=== PATIENT | male | born 1960 | race Caucasian/White ===

== ENCOUNTER 2017-03-08 08:56 | Day surgery (SDC) | payer OTHER ==
[2017-03-08 09:30] VITALS: BMI 25.8
[2017-03-08] MEDS ORDERED: LIDOCAINE HCL 2% (20ML MULTI-DOSE VIAL) NR ONE (09:54)
[2017-03-08 12:07] VITALS: BP 111/74; PULSE 60; TEMP 98
--- NOTE | 2017-03-09 13:47 | PATH ---
Surgical Pathology Report Patient Name: RAJESH JACKSON [facility]. Rec. #: [id number] /Age/Gender: 1960 (Age: 56) / M Account: [id number] Location: [facility]-ENDOS[facility] Taken: 03/08/2017 Received: 03/08/2017 Reported: 03/09/2017 Physicians: India Berger M.D. Specimen(s) Received A: BX DUODENUM B: BX ANTRUM C: BX GE JUNCTION Clinical History GERD, surveillance colon polyp GERD, diverticulosis colon Final Diagnosis A. DUODENUM, SECOND PORTION AND BULB, BIOPSY: DUODENAL MUCOSA WITHOUT SIGNIFICANT PATHOLOGIC CHANGES. NO HISTOLOGIC EVIDENCE OF GLUTEN SENSITIVE ENTEROPATHY (CELIAC DISEASE). B. STOMACH, ANTRUM, BIOPSY: GASTRIC ANTRAL MUCOSA WITH FOCAL MUCOSAL HEMORRHAGE. IMMUNOSTAIN FOR H. PYLORI IS NEGATIVE FOR ORGANISMS. C. GE JUNCTION, BIOPSY: SQUAMOUS EPITHELIUM WITH CHRONIC INFLAMMATION, REFLUX TYPE CHANGES AND FOCAL SIGNIFICANT INCREASE IN EOSINOPHILS (SEE COMMENT). Comment: There is a significant increase in intraepithelial neutrophils with the eosinophil count focally reaching 15-20/HPF. This eosinophil count is at the threshold level for eosinophilic esophagitis. While an increased numbers of eosinophils may be seen in GERD, these findings may represent eosinophilic esophagitis in proper clinical and endoscopic settings. Endoscopic correlations and followup are suggested. Electronically Signed Sb Miller M.D. Gross Description A. Received in formalin, labeled "biopsy duodenum second portion and bulb" are 3 arteaga, irregular portions of soft tissue ranging from 0.4-0.8 cm in greatest dimension. The specimens are submitted in toto in one cassette. B. Received in formalin, labeled "biopsy antrum" are 2 arteaga, irregular portions of soft tissue measuring 0.4 and 0.5 cm in greatest dimension. The specimens are submitted in toto in one cassette. C. Received in formalin, labeled "biopsy GE junction" are 4 arteaga, irregular portions of soft tissue ranging from 0.2-0.4 cm in greatest dimension. The specimens are submitted in toto in one cassette. 03/08/201703/08/2017
== END 2017-03-08 12:07 | disposition home or self-care (01) ==
LOC: JASU-ENDO 08:56
PROVIDERS: ATTEND Internal Medicine Gastroenterology
PROC: 0DB38ZX Excision of Lower Esophagus, Via Natural or Artificial Opening Endoscopic, Diagnostic (ICD-10-PCS; 2017-03-08)
PROC: 0DB98ZX Excision of Duodenum, Via Natural or Artificial Opening Endoscopic, Diagnostic (ICD-10-PCS; 2017-03-08)
PROC: 0DB68ZX Excision of Stomach, Via Natural or Artificial Opening Endoscopic, Diagnostic (ICD-10-PCS; 2017-03-08)
PROC: 0DB28ZX Excision of Middle Esophagus, Via Natural or Artificial Opening Endoscopic, Diagnostic (ICD-10-PCS; 2017-03-08)
PROC: 0DJD8ZZ Inspection of Lower Intestinal Tract, Via Natural or Artificial Opening Endoscopic (ICD-10-PCS; principal; 2017-03-08 09:45)
DX: Z86.010 Personal history of colon polyps (principal); K57.30 Diverticulosis of large intestine without perforation or abscess without bleeding; K21.9 Gastro-esophageal reflux disease without esophagitis; K44.9 Diaphragmatic hernia without obstruction or gangrene
CPT/HCPCS: 88305-TC; 88342-TC

== ENCOUNTER 2020-09-06 10:44 | Emergency (ER) | payer OTHER | END 2020-09-06 11:30 | disposition home or self-care (01) | LOC: JVIRT 10:44 | DX: U07.1 COVID-19 (principal) | CPT/HCPCS: C9803; G2251-GT; U0003 ==

== ENCOUNTER 2020-09-10 09:26 | Emergency (ER) | payer OTHER ==
[2020-09-10 09:39] VITALS: BMI 27.0
[2020-09-10] MEDS ORDERED: ACETAMINOPHEN 325 MG TABLET (FP) PO ONE (09:45)
[2020-09-10] MEDS ORDERED: ACETAMINOPHEN 325 MG TABLET (FP) ONE (10:01)
[2020-09-10] MEDS ORDERED: SODIUM CHLORIDE 1,000 ML IV STA (10:03)
[2020-09-10] MEDS ORDERED: ONDANSETRON 4 MG/2 ML VIAL IVPUSH ONE (10:03)
[2020-09-10] MEDS ORDERED: ONDANSETRON 4 MG/2 ML VIAL ONE (10:09)
[2020-09-10] MEDS ORDERED: IBUPROFEN 400 MG TABLET (FP) PO ONE ×2 (11:34→11:39)
[2020-09-10 11:38] VITALS: BP 110/79; PULSE 88; TEMP 101.9
== END 2020-09-10 11:47 | disposition home or self-care (01) ==
LOC: FER 09:26
PROC: 3E033GC Introduction of Other Therapeutic Substance into Peripheral Vein, Percutaneous Approach (ICD-10-PCS; principal; 2020-09-10)
PROC: 3E0337Z Introduction of Electrolytic and Water Balance Substance into Peripheral Vein, Percutaneous Approach (ICD-10-PCS; 2020-09-10)
DX: U07.1 COVID-19 (principal)
CPT/HCPCS: 99284-25

== ENCOUNTER 2020-09-11 11:50 | Emergency (ER) | payer OTHER ==
[2020-09-11 11:57] VITALS: BMI 27.3
[2020-09-11] MEDS ORDERED: ONDANSETRON 4 MG/2 ML VIAL IVPUSH ONE (12:02)
[2020-09-11] MEDS ORDERED: ACETAMINOPHEN 1000 MG/100 ML VIAL (NON FORMULARY) IVPB ONE (12:02)
[2020-09-11] MEDS ORDERED: SODIUM CHLORIDE 1,000 ML IV STA (12:02)
[2020-09-11] MEDS ORDERED: ACETAMINOPHEN INJECTION 100 ML IVPB ONE (12:10)
[2020-09-11] MEDS ORDERED: ONDANSETRON 4 MG/2 ML VIAL ONE (12:23)
[2020-09-11 12:32] LABS: BASO % 0.5 % (0-2.0); EOS % 0.1 % (0-4.5); HEMATOCRIT 45.4 % (35.4-49); HEMOGLOBIN 15.8 GM/dL (11.7-16.9); LYMPH % 20.7 % (8-40); MCHC 34.8 g/dl (32.0-35.9); MEAN CELL VOLUME 88.8 fl (80-96); MEAN PLT VOLUME 7.9 fl (7.5-11.1); MONO % 7.1 % (3.8-10.2); NEUT % 71.6 % (42.8-82.8); PLATELET COUNT 133 K/MM3 (134-434); RBC 5.11 M/mm3 (4.00-5.60); RDW 12.3 % (11.9-15.9); WHITE BLOOD COUNT 2.8 K/mm3 (4.0-10.0)
[2020-09-11 12:53] LABS: CALCIUM 8.6 mg/dL (8.5-10.1)
[2020-09-11 12:54] LABS: ALBUMIN 3.7 g/dl (3.4-5.0); BLOOD UREA NITROGEN 18.3 mg/dL (7-18)
[2020-09-11 12:57] LABS: CREATININE 1.1 mg/dL (0.55-1.3)
[2020-09-11 12:58] LABS: BILIRUBIN,TOTAL 1.1 mg/dL (0.2-1); TOT PROT 6.8 g/dl (6.4-8.2)
[2020-09-11 13:05] LABS: POTASSIUM 3.9 mmol/L (3.5-5.1)
[2020-09-11 13:54] VITALS: BP 126/61; PULSE 95; TEMP 99.1
== END 2020-09-11 13:54 | disposition home or self-care (01) ==
LOC: JER 11:50
PROC: 3E033NZ Introduction of Analgesics, Hypnotics, Sedatives into Peripheral Vein, Percutaneous Approach (ICD-10-PCS; principal; 2020-09-11)
PROC: 3E033GC Introduction of Other Therapeutic Substance into Peripheral Vein, Percutaneous Approach (ICD-10-PCS; 2020-09-11)
PROC: 3E0337Z Introduction of Electrolytic and Water Balance Substance into Peripheral Vein, Percutaneous Approach (ICD-10-PCS; 2020-09-11)
DX: R53.1 Weakness (principal)
CPT/HCPCS: 36415; 80053; 83735; 85025; 99285-25; J0131

== ENCOUNTER 2021-03-10 08:14 | Day surgery (SDC) | payer OTHER ==
[2021-03-04 16:27] VITALS: BMI 26.5
[2021-03-10 10:51] VITALS: TEMP 97.6
[2021-03-10 10:54] VITALS: BP 116/74; PULSE 74
[2021-03-10 11:21] LABS: ALBUMIN 3.9 g/dl (3.4-5.0); BILIRUBIN,DIRECT 0.2 mg/dL (0.0-0.2); BILIRUBIN,TOTAL 1.5 mg/dl (0.2-1); TOT PROT 6.2 g/dl (6.4-8.2)
== END 2021-03-10 10:55 | disposition home or self-care (01) ==
LOC: FASU-ENDO 08:14
PROVIDERS: ATTEND Internal Medicine Gastroenterology
PROC: 0DB68ZX Excision of Stomach, Via Natural or Artificial Opening Endoscopic, Diagnostic (ICD-10-PCS; 2021-03-10)
PROC: 0DB48ZX Excision of Esophagogastric Junction, Via Natural or Artificial Opening Endoscopic, Diagnostic (ICD-10-PCS; 2021-03-10)
PROC: 0DB98ZX Excision of Duodenum, Via Natural or Artificial Opening Endoscopic, Diagnostic (ICD-10-PCS; principal; 2021-03-10 09:41)
DX: K29.50 Unspecified chronic gastritis without bleeding (principal); K29.80 Duodenitis without bleeding; K44.9 Diaphragmatic hernia without obstruction or gangrene; K22.10 Ulcer of esophagus without bleeding
CPT/HCPCS: 36415; 80076; 82150; 83690

== ENCOUNTER 2023-03-22 07:52 | Day surgery (SDC) | payer OTHER ==
[2023-03-18 13:39] VITALS: BMI 27.6
[2023-03-22 08:13] VITALS: RESP 16
[2023-03-22 09:56] VITALS: TEMP 97
[2023-03-22 10:22] VITALS: BP 128/82; PULSE 62
== END 2023-03-22 10:38 | disposition home or self-care (01) ==
LOC: FASU-ENDO 07:52
PROVIDERS: ATTEND Internal Medicine Gastroenterology
PROC: 0DJD8ZZ Inspection of Lower Intestinal Tract, Via Natural or Artificial Opening Endoscopic (ICD-10-PCS; principal; 2023-03-22 09:22)
DX: Z12.11 Encounter for screening for malignant neoplasm of colon (principal); Z86.010 Personal history of colon polyps; K57.30 Diverticulosis of large intestine without perforation or abscess without bleeding